=== PATIENT | female | born 1970 | race Caucasian/White ===

== ENCOUNTER 2016-08-26 18:46 | Emergency (ER) | payer SELFPAY ==
[~2016-08-26] VITALS: Ht 172.7 cm; Wt 65.0 kg
[~2016-08-26 18:46] MED LIST: IBUP800T23 PO
[2016-08-26 18:47] VITALS: BP 128/80; PULSE 93; RESP 14; TEMP 98; O2SAT 96
[2016-08-26] MEDS ORDERED: ONDANSETRON ODT 4 MG TAB PO ONE (19:15)
[2016-08-26] MEDS ORDERED: SILVER SULFADIAZINE 1% CR 50 GM JAR TOPICAL ONE (19:15)
[2016-08-26] MEDS ORDERED: ACETAMINOPHEN/HYDROcodone 325 MG/5 MG TAB PO ONE (19:15)
[2016-08-26] MEDS ORDERED: HYDR-3533 PO (19:17)
[2016-08-26] MEDS ORDERED: ZOFR4TAB PO (19:17)
[2016-08-26] MEDS ORDERED: SILV1CRE20 TOPICAL (19:17)
[2016-08-26] MEDS ORDERED: MONT10TA2 PO (19:19)
[2016-08-26] MEDS ORDERED: ADVA100A INH (19:19)
[2016-08-26] MEDS ORDERED: NEXI20CA PO (19:19)
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
== END 2016-08-26 19:52 | disposition home or self-care (01) ==
LOC: NEPK 18:46
DX: T23.202A Burn of second degree of left hand, unspecified site, initial encounter (principal); T31.0 Burns involving less than 10% of body surface; J44.9 Chronic obstructive pulmonary disease, unspecified; J45.909 Unspecified asthma, uncomplicated; Z79.899 Other long term (current) drug therapy; Z79.52 Long term (current) use of systemic steroids; X10.1XXA Contact with hot food, initial encounter
CPT/HCPCS: 16020

== ENCOUNTER 2016-09-30 08:43 | Emergency (ER) | payer SELFPAY ==
[~2016-09-30] VITALS: Ht 172.7 cm; Wt 66.0 kg
[~2016-09-30 08:43] MED LIST changes: +ADVA100A INH; +HYDR-3533 PO; +MONT10TA2 PO; +NEXI20CA PO; +SILV1CRE20 TOPICAL; +ZOFR4TAB PO
[2016-09-30 08:45] VITALS: BP 130/80; PULSE 86; RESP 20; TEMP 97.9; O2SAT 98
--- NOTE | 2016-09-30 09:21 | PD ---
HPI Chief Complaint: Complaint Time Seen by Provider: 09:06 Travel History International Travel<30 days: No Contact w/Intl Traveler<30days: No Traveled to known affect area: No History of Present Illness HPI 46yo F with PMH of COPD, cervical cancer currently cancer free for 4 years presents to the ED with multiple complaints. Pt has frequent UTIs and has been having dysuria for 1 week. Also with vaginal itching and white vaginal discharge for 1 week. Feels warm at home but no documented fever. Denies any nausea, vomiting, abdominal pain, chest pain, sob. Pt also complaining of right knee pain for 2.5 days after she was cleaning and twisted her right knee. States she heard a pop and it was swollen and painful. States she has been ambulating on it but with pain. Denies any focal weakness and numbness. PFSH Past Medical History Respiratory: Yes (copd asthma) Social History Alcohol Use: Yes Tobacco Use: No Substance Use: No Allergies-Medications (Allergen,Severity, Reaction): Coded Allergies: Azithromycin (Verified Allergy, Severe, Anaphylaxis, 09/30/16) rash, hives Tramadol (Verified Allergy, Severe, Anaphylaxis, 09/30/16) rash, hives Reported Meds & Prescriptions Reported Meds & Active Scripts Active Doxycycline Hyclate 100 Mg Cap 100 Mg PO BID Metronidazole 500 Mg Tab 500 Mg PO BID 7 Days Ibuprofen 800 Mg Tab 800 Mg PO Q8H PRN Ibuprofen 600 Mg Tab 600 Mg PO Q8H PRN Reported Nexium (Esomeprazole DR) 20 Mg Capdr 20 Mg PO DAILY Advair Diskus Inh (Fluticasone-Salmeterol Inh) 100-50 Mcg/Blist Aer 1 Puff INH BID Rinse mouth after use. Singulair (Montelukast Sodium) 10 Mg Tab 10 Mg PO HS Review of Systems Except as stated in HPI: all other systems reviewed are Neg Physical Exam Narrative GENERAL: 46yo F not in distress. SKIN: Focused skin assessment warm/dry. HEAD: Atraumatic. Normocephalic. EYES: Pupils equal and round. No scleral icterus. No injection or drainage. ENT: No nasal bleeding or discharge. Mucous membranes pink and moist. NECK: Trachea midline. No JVD. CARDIOVASCULAR: Regular rate and rhythm. No murmur appreciated. RESPIRATORY: No accessory muscle use. Coarse breath sounds. States this is her baseline. Speaking in complete sentences. GASTROINTESTINAL: Abdomen soft, suprapubic ttp. No rebound tenderness or guarding. PELVIC: +White discharge in vaginal vault. No blood. +CMT. No adnexal tenderness bilaterally. MUSCULOSKELETAL: Right knee: Not hot to touch. No erythema or ecchymoses. Mild edema and diffuse ttp. Sensation intact. Decreased ROM due to pain. DP 2 +. Sensation intact. NEUROLOGICAL: Awake and alert. No obvious cranial nerve deficits. Motor grossly within normal limits. Normal speech. PSYCHIATRIC: Appropriate mood and affect; insight and judgment normal. Data Data Last Documented VS Vital Signs Date Time Temp Pulse Resp B/P Pulse Ox O2 Delivery O2 Flow Rate FiO2 09/30/16 08:45 97.9 86 20 130/80 98 Room Air Orders Gc And Chlamydia Pcr (09/30/16 09:14) Wet Prep Profile (09/30/16 09:14) Ua Includes Microscopic (09/30/16 09:14) Ed Urine Pregnancytest Poc (09/30/16 09:14) Knee, Ltd (1 Or 2vws) (09/30/16 ) Azithromycin Powd Pack (Zithromax Powd P (09/30/16 09:30) Ceftriaxone Inj (Rocephin Inj) (09/30/16 09:30) Lidocaine 1% Inj (50 Ml) (Xylocaine 1% I (09/30/16 09:30) Ibuprofen (Motrin) (09/30/16 09:30) Doxycycline (Vibramycin) (09/30/16 10:00) Metronidazole (Flagyl) (09/30/16 10:30) Crutches (09/30/16 ) Splint Or Brace Apply/Monitor (09/30/16 11:04) Labs Laboratory Tests Test 09/30/16 09:27 Urine Color YELLOW Urine Turbidity HAZY Urine pH 5.5 Urine Specific [place] 1.029 Urine Protein 30 mg/dL Urine Glucose (UA) NEG mg/dL Urine Ketones NEG mg/dL Urine Occult Blood SMALL Urine Nitrite NEG Urine Bilirubin NEG Urine Urobilinogen 2.0 MG/DL Urine Leukocyte Esterase LARGE Urine RBC 6 /hpf Urine WBC 42 /hpf Urine WBC Clumps RARE Urine Squamous Epithelial 3 /hpf Cells Urine Bacteria OCC /hpf Urine Hyaline Casts 3 /lpf Urine Mucus MANY /lpf Clue Cells (Wet Prep) NONE SEEN Vaginal Trichomonas (Wet Prep) PRESENT Vaginal Yeast (Wet Prep) NONE SEEN MDM Medical Decision Making Medical Screen Exam Complete: Yes Emergency Medical Condition: Yes Differential Diagnosis Cystitis vs. vaginal candidiasis vs. bacterial vaginosis vs. trichomoniasis vs. PID Knee sprain vs. ligament injury vs. fracture Narrative Course 46yo F with c/o vaginal discharge, dysuria and pelvic pain for 1 week. Urine negative. Pt has large amount of white discharge on pelvic exam and CMT so empirically treated with ceftriaxone and azithromycin. However, when we were going to give the azithromycin, she suddenly remembers she had an anaphylactic reaction to z-samuel so azithromycin was not given. Pt was given doxycycline instead. UA showed large leukocyte. WBC 42. Wet prep positive for trichomonas. Pt given metronidazole. Pt also comes in with right knee pain after twisting it while cleaning Tuesday. She is nontoxic appearing, no documented fever, and knee does not appear warm or erythematous. Do not think pt has septic arthritis. Pt clearly states she twisted it and then had pain so likely ligamentous injury. Pt given ibuprofen for pain. Xray right knee normal. Knee placed in knee immobilizer and pt is requesting crutches. Will have pt follow up with orthopedic clinic and possible outpatient MRI if pain persists. Pt also refused arthrocentesis. Return precautions given. Diagnosis Primary Impression: Trichomoniasis Referrals: Jesse Rebollar MD as needed Twisted right knee, follow up if pain persists. Patient Instructions: General Instructions Departure Forms: Tests/Procedures Additional Instructions: Please follow up with your monitor and storage bin tender in 1 week. Return to the ED if symptoms worsen. Med/Other Pt SpecificInfo: Prescription(s) given Scripts Hydrocodone-Acetaminophen (Lortab)5-325 Mg Tab1 Tab PO Q6H PRN (PAIN) #7 TAB Ref 0 Prov:AurelianoMarilin DO 09/30/16 Ibuprofen 600 Mg [id number] Mg PO Q8H PRN (PAIN) #20 TAB Ref 0 Prov:AurelianoMarilin DO 09/30/16 Doxycycline Hyclate 100 Mg [id number] Mg PO BID #20 CAP Ref 0 Prov:AurelianoMarilin DO 09/30/16 Metronidazole 500 Mg [id number] Mg PO BID 7 Days Ref 0 Prov:AurelianoMarilin DO 09/30/16 Disposition: 01 DISCHARGE HOME Condition: Stable Marilin Bedoya DO Sep 30, 2016 09:21
[2016-09-30] MEDS ORDERED: IBUPROFEN 600 MG TAB PO ONE (09:30)
[2016-09-30] MEDS ORDERED: cefTRIAXone 250 MG VIAL IM ONE (09:30)
[2016-09-30] MEDS ORDERED: AZITHROMYCIN PWD FOR SUSP 1 GM PACKET PO ONE (09:30)
[2016-09-30] MEDS ORDERED: LIDOCAINE HCL 1% 50 ML VIAL IM ONE (09:30)
[2016-09-30] MEDS ORDERED: DOXYCYCLINE HYCLATE 100 MG CAP PO ONE (10:00)
[2016-09-30 10:14] LABS: BACTERIA, URINE OCC /hpf; BLOOD, URINE SMALL (NEG); GLUCOSE,URINE NEG (NEG); HYALINE CAST, URINE 3 /lpf (RARE); KETONE, URINE NEG (NEG); MUCUS URINE MANY /lpf (OCC); NITRITE,URINE NEG (NEG); PH, URINE 5.5 (5.0-8.5); SQUAMOUS EPITHELIAL CELL URINE 3 /hpf (0-5); URINE COLOR YELLOW (YELLW/STRAW)
[2016-09-30] MEDS ORDERED: metroNIDAZOLE 500 MG TAB PO ONE (10:30)
[2016-09-30] MEDS ORDERED: METR500T10 PO (10:36)
[2016-09-30] MEDS ORDERED: DOXY100C PO (10:36)
[2016-09-30] MEDS ORDERED: IBUP-232 PO (10:36)
--- NOTE | 2016-09-30 10:47 | RADRPT ---
EXAM DATE/TIME: 09/30/2016 10:08 [facility] COMPARISON: No previous studies available for comparison. INDICATIONS : Right knee pain and swelling for 2 days. Patient twisted her knee 2 days. MEDICAL HISTORY : None. SURGICAL HISTORY : None. ENCOUNTER: Initial ACUITY: 2 days PAIN SCORE: 9/10 LOCATION: Right medial knee. FINDINGS: Two view examination of the right knee demonstrates no evidence of fracture or dislocation. Bony min eralization is normal. The suprapatellar soft tissues have a normal configuration. CONCLUSION: Normal examination for a patient of this age. Bubba Mendez MD on September 30, 2016 at 10:44 Board Certified Radiologist. This report was verified electronically.
[2016-09-30] MEDS ORDERED: HYDR-3533 PO (11:31)
[2016-09-30 11:57] LABS: CHLAMYDIA PCR NOT DETECTED (NOT DETECT); NEISSERIA PCR NOT DETECTED (NOT DETECT)
== END 2016-09-30 11:42 | disposition home or self-care (01) ==
LOC: NEPD 08:43
DX: A59.9 Trichomoniasis, unspecified (principal); M25.561 Pain in right knee; J44.9 Chronic obstructive pulmonary disease, unspecified; J45.909 Unspecified asthma, uncomplicated; Z79.52 Long term (current) use of systemic steroids; Z79.1 Long term (current) use of non-steroidal anti-inflammatories (NSAID); Z79.899 Other long term (current) drug therapy
CPT/HCPCS: 73560; 81001; 84703; 87210; 87491; 87591; 96372; 99284; E0113; J0696; L1830

== ENCOUNTER 2016-11-19 12:54 | Emergency (ER) | payer SELFPAY ==
[~2016-11-19] VITALS: Ht 172.7 cm; Wt 68.0 kg
[~2016-11-19 12:54] MED LIST changes: +DOXY100C PO; +IBUP-232 PO; +METR500T10 PO; -SILV1CRE20 TOPICAL; -ZOFR4TAB PO
[2016-11-19 12:57] VITALS: BP 135/85; PULSE 91; RESP 12; TEMP 98.1; O2SAT 98
--- NOTE | 2016-11-19 13:17 | PD ---
Physical Exam Time Seen by Provider: 13:15 Narrative 46-year-old female presents with complaint of COPD exacerbation and abdominal pain. COPD exacerbation times a couple days. Abdominal pain for a little over a week. Reports shortness breath and wheezing. Denies chest pain. Reports vomiting and diarrhea. Denies fever. Patient seen in triage. VS reviewed. Awaiting bed placement. Data Data Last Documented VS Vital Signs Date Time Temp Pulse Resp B/P (MAP) Pulse Ox O2 Delivery O2 Flow Rate FiO2 11/19/16 12:57 98.1 91 12 135/85 (102) 98 MDM Supervised Visit with JOE: Stephanie Hunter Nov 19, 2016 13:17
[2016-11-19 14:56] VITALS: O2SAT 100
[2016-11-19] MEDS ORDERED: SODIUM CHLORIDE 0.9% FLUSH 10 ML FLUSH IVF PRN (15:00)
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
[2016-11-19] MEDS: RESP: ALBUTEROL 2.5 MG/IPRATROPIUM 0.5 MG NEB (SCH) INH (15:09)
[2016-11-19 15:39] LABS: AUTOMATED NEUTROPHIL # 5.7 TH/MM3 (1.8-7.7); BASOPHIL # 0.1 TH/MM3 (0-0.2); BASOPHIL % 0.6 % (0.0-2.0); EOSINOPHIL # 0.2 TH/MM3 (0-0.4); EOSINOPHIL % 1.8 % (0.0-4.0); HEMATOCRIT 34.6 % (35.0-46.0); HEMO FLAGS DIFF FINAL; LYMPH % 21.6 % (9.0-44.0); LYMPHOCYTE # 1.9 TH/MM3 (1.0-4.8); MEAN CELL VOLUME 95.2 FL (80.0-100.0); MEAN CORPUSCULAR HGB CONC 33.6 % (32.0-36.0); PLATELET COUNT 273 TH/MM3 (150-450); RED BLOOD COUNT 3.64 MIL/MM3 (4.00-5.30); RED CELL DISTRIBUTION WIDTH 13.7 % (11.6-17.2); WHITE BLOOD COUNT 8.7 TH/MM3 (4.0-11.0)
--- NOTE | 2016-11-19 15:39 | RADRPT ---
EXAM DATE/TIME: 11/19/2016 15:13 [facility] COMPARISON: KNEE RIGHT LTD (1 OR 2 VWS), September 30, 2016, 10:08. INDICATIONS : Wheezing MEDICAL HISTORY : Chronic obstructive pulmonary disease. asthma, [place] 3 x this year. SURGICAL HISTORY : None. ENCOUNTER: Initial ACUITY: 1 day PAIN SCORE: 0/10 LOCATION: Bilateral chest FINDINGS: A single view of the chest demonstrates the lungs to be symmetrically aerated without evidence of mas s, infiltrate or effusion. The cardiomediastinal contours are unremarkable. Osseous structures are intact. CONCLUSION: 1. No acute cardiopulmonary findings. Balbir Lenz MD on November 19, 2016 at 15:37 Board Certified Radiologist. This report was verified electronically.
[2016-11-19 15:43] LABS: BLOOD, URINE NEG (NEG); GLUCOSE,URINE NEG (NEG); KETONE, URINE NEG (NEG); NITRITE,URINE NEG (NEG); PH, URINE 6.5 (5.0-8.5); URINE COLOR YELLOW (YELLW/STRAW)
[2016-11-19 15:48] LABS: COMMENT (UR) CULT NOT INDICATED; CULTURE IF INDICATED CULT NOT INDICATED
[2016-11-19] MEDS ORDERED: IOHEXOL 350 MG/ML 10 ML VIAL (for RAD DIAG) IV PUSH ONE (16:11)
[2016-11-19 16:19] LABS: ALT (GPT) 25 U/L (10-53); ANION GAP 7 MEQ/L (5-15); AST (GOT) 24 U/L (15-37); BICARBONATE 25.8 MEQ/L (21.0-32.0); BLOOD UREA NITROGEN 7 MG/DL (7-18); CHLORIDE 108 MEQ/L (98-107); GLOMERULAR FILTRATION RATE 122 ML/MIN (>89); POTASSIUM 3.4 MEQ/L (3.5-5.1); SODIUM (NA) 141 MEQ/L (136-145)
[2016-11-19 16:20] LABS: ALKALINE PHOSPHATASE 63 U/L (45-117); TOTAL BILIRUBIN ADULT 0.2 MG/DL (0.2-1.0)
[2016-11-19] MEDS ORDERED: SPIRCAP INH (16:34)
[2016-11-19] MEDS ORDERED: ADVA100A INH (16:34)
[2016-11-19] MEDS ORDERED: VENTAER INH (16:34)
[2016-11-19] MEDS ORDERED: ZOFR4TAB PO (16:34)
[2016-11-19] MEDS ORDERED: MONT10TA2 PO (16:34)
[2016-11-19] MEDS ORDERED: PRED10PA2 PO (16:34)
--- NOTE | 2016-11-19 16:39 | RADRPT ---
EXAM DATE/TIME: 11/19/2016 16:15 [facility] COMPARISON: No previous studies available for comparison. INDICATIONS : Abdomen pain for one week. IV CONTRAST: 100 cc Omnipaque 350 (iohexol) IV ORAL CONTRAST: No oral contrast ingested. RADIATION DOSE: 12.45 CTDIvol (mGy) MEDICAL HISTORY : Carcinoma, not otherwise specified. SURGICAL HISTORY : Appendectomy. Left oopherectomy. ENCOUNTER: Initial ACUITY: 1 day PAIN SCALE: 6/10 LOCATION: Bilateral abdomen. TECHNIQUE: Volumetric scanning of the abdomen and pelvis was performed. Using automated exposure control and ad justment of the mA and/or kV according to patient size, radiation dose was kept as low as reasonably achievable to obtain optimal diagnostic quality images. DICOM format image data is available electro nically for review and comparison. FINDINGS: LOWER LUNGS: The visualized lower lungs are clear. LIVER: Homogeneous density without lesion. Generalized nonspecific hepatomegaly There is no dilation of the biliary tree. No calcified gallstones. Gallbladder is seen and luminal structure without evidence of wall thickening SPLEEN: Normal size without lesion. PANCREAS: Within normal limits. KIDNEYS: Normal in size and shape. There is no hydronephrosis. 3 mm stone is appreciated in the lower pole ca lyceal system nonobstructive the left kidney and there is a 1.7 cm cyst of the cortex posterior later ally mid pole of the right kidney as well as a tiny subcentimeter cyst medially. There is a 6 mm cyst of the lower pole of the left kidney and adjacent to this a linear hyperdense lesions most likely re present a complicated or hemorrhagic cyst although true solid mass cannot be excluded. ADRENAL GLANDS: Within normal limits. VASCULAR: There is no aortic aneurysm. BOWEL/MESENTERY: The stomach, small bowel, and colon demonstrate no acute abnormality. There is no free intraperitone al air or fluid. ABDOMINAL WALL: Within normal limits. RETROPERITONEUM: There is no lymphadenopathy. BLADDER: No wall thickening or mass. REPRODUCTIVE: Within normal limits. INGUINAL: There is no lymphadenopathy or hernia. MUSCULOSKELETAL: Within normal limits for patient age. Mild facet arthritic changes L5-S1 CONCLUSION: Nonspecific generalized hepatomegaly.. Bilateral renal cysts as described above. 3 mm left kidney lower pole calyceal nonobstructing stone. 9 mm rounded left kidney lower pole mass may represe nt a complicated or hemorrhagic cyst possibly 2 solid mass not excludable. This requires elective out patient evaluation. Ruiz Stone, MD on November 19, 2016 at 16:30 Board Certified Radiologist. This report was verified electronically.
[2016-11-19 17:08] VITALS: BP 125/67
--- NOTE | 2016-11-20 15:56 | EKG ---
Date Performed: 11/19/2016 Time Performed: 15:05:51 PTAGE: 46 years EKG: Sinus rhythm POSSIBLE RIGHT VENTRICULAR CONDUCTION DELAY BORDERLINE ECG NO PREVIOUS TRACING DOCTOR: Filiberto Reed Interpretating Date/Time 11/20/2016 15:55:24
== END 2016-11-19 17:10 | disposition home or self-care (01) ==
LOC: NEPD 12:54
DX: J44.1 Chronic obstructive pulmonary disease with (acute) exacerbation (principal); R10.84 Generalized abdominal pain; E87.6 Hypokalemia; R11.2 Nausea with vomiting, unspecified; J45.909 Unspecified asthma, uncomplicated
CPT/HCPCS: 71010; 74177; 80053; 81001; 83605; 84703; 85025; 93005; 94640; 94664; 99285; Q9967

== ENCOUNTER 2016-11-21 13:09 | Emergency (ER) | payer SELFPAY ==
[~2016-11-21] VITALS: Ht 172.7 cm; Wt 65.0 kg
[~2016-11-21 13:09] MED LIST changes: +PRED10PA2 PO; +SPIRCAP INH; +VENTAER INH; +ZOFR4TAB PO
[2016-11-21 13:19] VITALS: PULSE 75; RESP 21; TEMP 98.1; O2SAT 99
[2016-11-21 13:27] VITALS: BP 130/65; PULSE 77; RESP 20; O2SAT 98
[2016-11-21] MEDS ORDERED: SODIUM CHLOR 0.9% 1000 ML INJ 1,000 ML IV SCH (13:43)
[2016-11-21] MEDS ORDERED: RESP: ALBUTEROL 2.5 MG/IPRATROPIUM 0.5 MG NEB (SCH) INH ONE (13:45)
[2016-11-21] MEDS ORDERED: methylPREDNISolone SOD SUCC 125 MG/2 ML VIAL IV PUSH ONE (13:45)
[2016-11-21] MEDS ORDERED: MORPHINE SULFATE 4 MG/ML INJ IV PUSH ONE (13:45)
[2016-11-21] MEDS ORDERED: ONDANSETRON HCL 4 MG/2 ML VIAL IV PUSH ONE (13:45)
[2016-11-21 13:49] VITALS: O2SAT 98
[2016-11-21 13:59] LABS: AUTOMATED NEUTROPHIL # 5.1 TH/MM3 (1.8-7.7); BASOPHIL # 0.1 TH/MM3 (0-0.2); BASOPHIL % 0.8 % (0.0-2.0); EOSINOPHIL # 0.1 TH/MM3 (0-0.4); EOSINOPHIL % 1.4 % (0.0-4.0); HEMATOCRIT 36.2 % (35.0-46.0); HEMO FLAGS DIFF FINAL; LYMPH % 24.5 % (9.0-44.0); MEAN CORPUSCULAR HEMOGLOBIN 31.7 PG (27.0-34.0); MEAN CORPUSCULAR HGB CONC 33.4 % (32.0-36.0); MONO % 10.2 % (0.0-8.0); NEUT % 63.1 % (16.0-70.0); PLATELET COUNT 289 TH/MM3 (150-450); RED BLOOD COUNT 3.82 MIL/MM3 (4.00-5.30); RED CELL DISTRIBUTION WIDTH 14.2 % (11.6-17.2); WHITE BLOOD COUNT 8.1 TH/MM3 (4.0-11.0)
[2016-11-21 14:05] LABS: BACTERIA, URINE OCC /hpf; BLOOD, URINE TRACE (NEG); COMMENT (UR) CULT NOT INDICATED; CULTURE IF INDICATED CULT NOT INDICATED; GLUCOSE,URINE TRACE mg/dL (NEG); KETONE, URINE NEG (NEG); MUCUS URINE FEW /lpf (OCC); NITRITE,URINE NEG (NEG); PH, URINE 7.5 (5.0-8.5); URINE COLOR YELLOW (YELLW/STRAW)
[2016-11-21 14:25] LABS: ALT (GPT) 26 U/L (10-53); ANION GAP 7 MEQ/L (5-15); AST (GOT) 23 U/L (15-37); BICARBONATE 28.1 MEQ/L (21.0-32.0); BLOOD UREA NITROGEN 7 MG/DL (7-18); CHLORIDE 108 MEQ/L (98-107); GLOMERULAR FILTRATION RATE 88 ML/MIN (>89); POTASSIUM 3.6 MEQ/L (3.5-5.1); SODIUM (NA) 143 MEQ/L (136-145)
[2016-11-21 14:28] LABS: ALKALINE PHOSPHATASE 66 U/L (45-117); TOTAL BILIRUBIN ADULT 0.1 MG/DL (0.2-1.0)
--- NOTE | 2016-11-21 14:48 | RADRPT ---
EXAM DATE/TIME: 11/21/2016 14:27 [facility] COMPARISON: CT ABDOMEN & PELVIS W CONTRAST, November 19, 2016, 16:15. INDICATIONS : Flank pain. Left renal calculus seen on recent CT ORAL CONTRAST: No oral contrast ingested. RADIATION DOSE: 5.82 CTDIvol (mGy) MEDICAL HISTORY : Renal calculi. SURGICAL HISTORY : Appendectomy. oophorectomy ENCOUNTER: Initial ACUITY: 1 day PAIN SCALE: 6/10 LOCATION: Bilateral flank TECHNIQUE: Volumetric scanning of the abdomen and pelvis was performed. Using automated exposure control and ad justment of the mA and/or kV according to patient size, radiation dose was kept as low as reasonably achievable to obtain optimal diagnostic quality images. DICOM format image data is available electro nically for review and comparison. FINDINGS: LOWER LUNGS: The visualized lower lungs are clear. LIVER: Homogeneous density without lesion. There is no dilation of the biliary tree. No calcified gallston es. SPLEEN: Normal size without lesion. PANCREAS: Within normal limits. KIDNEYS: Normal in size and shape. There is no mass or the previously noted 3 mm left renal calculus is uncha nged. There is no hydronephrosis. The visualized portions of the bladder are unremarkable. ADRENAL GLANDS: Within normal limits. VASCULAR: There is no aortic aneurysm. BOWEL/MESENTERY: There are multiple diverticuli with no inflammatory change. The stomach, small bowel, and colon demon strate no acute abnormality. There is no free intraperitoneal air or fluid. ABDOMINAL WALL: Within normal limits. RETROPERITONEUM: There is no lymphadenopathy. BLADDER: No wall thickening or mass. REPRODUCTIVE: Within normal limits. INGUINAL: There is no lymphadenopathy or hernia. MUSCULOSKELETAL: Within normal limits for patient age. CONCLUSION: 1. No change in the 3 mm nonobstructing left renal calculus. There is no hydronephrosis. The right ki dney is unremarkable. 2. 9 mm hyperdense lesion extending off the lower pole the left kidney most consistent with a hyperde nse cyst. 3. Diverticulosis with no inflammatory change. Sergio John MD on November 21, 2016 at 14:40 Board Certified Radiologist. This report was verified electronically.
--- NOTE | 2016-11-21 14:50 | PD ---
HPI Chief Complaint: Flank/Kidney Pain Time Seen by Provider: 13:29 Travel History International Travel<30 days: No Contact w/Intl Traveler<30days: No Traveled to known affect area: No History of Present Illness HPI 46-year-old female that presents to the ED for evaluation of right flank pain and shortness of breath. Patient states that she was seen here on the for same. She was told that she had hypokalemia as well as COPD exacerbation. She was given prescriptions but she states that she's not been able to feel them up because she has no money and is waiting for her father to see if he can help her get them filled. She states that the pain to the right flank is 10 out of 10. Per patient she's been having a lot of discomfort. Per patient she feels dehydrated. Per patient she feels that she is weak. She states that she has allergy to azithromycin and tramadol. She states the shortness of breath for the most part has improved a little bit but not completely. She is also not been taking her inhalers because she cannot afford them. She states that the shortness of breath gets worse with exertion. States having some cough. Patient came here by ambulance for evaluation of this. No nausea or vomiting. No diarrhea. No urinary symptoms. She does tell me that she was diagnosed with a kidney stone which she was on the left kidney on her last admission as well as a cyst to her left kidney. No other medical problems reported today. Per patient his been ongoing for now 4 days. She has no PCP. PFSH Past Medical History Asthma: Yes Cancer: Yes (cervical ) COPD: Yes GERD: Yes Neurologic: Yes (neuropathy right arm ) Respiratory: Yes (copd asthma) ?: Not : 3 Para: 1 Miscarriage: 2 Past Surgical History Abdominal Surgery: Yes (small bowel obstruction, 7 laparscopic surgeries, appendectomy) Social History Alcohol Use: Yes (occ) Tobacco Use: Yes (occ) Substance Use: No (denies) Allergies-Medications (Allergen,Severity, Reaction): Coded Allergies: azithromycin (Unverified Allergy, Severe, Anaphylaxis, 10/12/16) rash, hives tramadol (Unverified Allergy, Severe, Anaphylaxis, 10/12/16) rash, hives Reported Meds & Prescriptions Reported Meds & Active Scripts Active Lortab (Hydrocodone-Acetaminophen) 5-325 Mg Tab 1 Tab PO Q6H PRN Cipro (Ciprofloxacin HCl) 500 Mg Tab 500 Mg PO BID 7 Days Zofran (Ondansetron HCl) 4 Mg Tab 4 Mg PO Q6HR PRN Spiriva Handihaler (Tiotropium Inh) 18 Mcg Cap 18 Mcg INH DAILY 1 capsule = 18 mcg Prednisone (48) 10 mg tab Dose Pack (Prednisone) 10 Mg Dspk 10 Mg PO DIRECTED Ventolin Hfa 18 GM Inh (Albuterol Sulfate) 90 Mcg/Act Aer 2 Puff INH Q4H PRN Advair Diskus Inh (Fluticasone-Salmeterol Inh) 100-50 Mcg/Blist Aer 1 Puff INH BID Rinse mouth after use. Singulair (Montelukast Sodium) 10 Mg Tab 10 Mg PO HS Lortab (Hydrocodone-Acetaminophen) 5-325 Mg Tab 1 Tab PO Q6H PRN Ibuprofen 600 Mg Tab 600 Mg PO Q8H PRN Doxycycline Hyclate 100 Mg Cap 100 Mg PO BID Metronidazole 500 Mg Tab 500 Mg PO BID 7 Days Ibuprofen 800 Mg Tab 800 Mg PO Q8H PRN Reported Nexium (Esomeprazole DR) 20 Mg Capdr 20 Mg PO DAILY Review of Systems Except as stated in HPI: all other systems reviewed are Neg Physical Exam Narrative GENERAL: SKIN: Warm and dry. HEAD: Atraumatic. Normocephalic. EYES: Pupils equal and round. No scleral icterus. No injection or drainage. ENT: No nasal bleeding or discharge. Mucous membranes pink and moist. Tongue is midline. No uvula deviation. NECK: Trachea midline. No JVD. CARDIOVASCULAR: Regular rate and rhythm. No murmurs, S3, S4. RESPIRATORY: No accessory muscle use. Mild wheezing on expiration. Breath sounds equal bilaterally. GASTROINTESTINAL: Abdomen soft, non-tender, nondistended. Hepatic and splenic margins not palpable. MUSCULOSKELETAL: Extremities without clubbing, cyanosis, or edema. No obvious deformities. Full range of motion of the upper and lower extremity is bilaterally. Patient does have some mild bruising on the right flank. Appears to be from contusion. Patient does have some CVA tenderness noted on the right side. NEUROLOGICAL: Awake and alert. No obvious cranial nerve deficits. Motor grossly within normal limits. Five out of 5 muscle strength in the arms and legs. Normal speech. PSYCHIATRIC: Appropriate mood and affect; insight and judgment normal. Data Data Last Documented VS Vital Signs Date Time Temp Pulse Resp B/P (MAP) Pulse Ox O2 Delivery O2 Flow Rate FiO2 11/21/16 13:49 98 Room Air 11/21/16 13:27 77 20 11/21/16 13:19 98.1 Orders Orders Complete Blood Count With Diff (11/21/16 13:34) Comprehensive Metabolic Panel (11/21/16 13:34) Lipase (11/21/16 13:34) Urinalysis - C+S If Indicated (11/21/16 13:34) Ct Abd/Pel W/O Iv Contrast (11/21/16 13:34) Iv Access Insert/Monitor (11/21/16 13:34) Ecg Monitoring (11/21/16 13:34) Oximetry (11/21/16 13:34) Methylprednisolone So Succ Inj (Solumedr (11/21/16 13:45) Albuterol-Ipratropium Neb (Duoneb Neb) (11/21/16 13:45) Morphine Inj (Morphine Inj) (11/21/16 13:45) Ondansetron Inj (Zofran Inj) (11/21/16 13:45) Sodium Chlor 0.9% 1000 Ml Inj (Ns 1000 M (11/21/16 13:43) Ed Urine Pregnancytest Poc (11/21/16 13:43) Labs Laboratory Tests Test 11/21/16 13:30 11/21/16 13:35 Urine Color YELLOW Urine Turbidity CLOUDY Urine pH 7.5 Urine Specific [place] 1.021 Urine Protein TRACE mg/dL Urine Glucose (UA) TRACE mg/dL Urine Ketones NEG mg/dL Urine Occult Blood TRACE Urine Nitrite NEG Urine Bilirubin NEG Urine Urobilinogen LESS THAN 2.0 MG/DL Urine Leukocyte Esterase NEG Urine RBC 2 /hpf Urine Amorphous Sediment FEW Urine Bacteria OCC /hpf Urine Mucus FEW /lpf Microscopic Urinalysis Comment CULT NOT INDICATED White Blood Count 8.1 TH/MM3 Red Blood Count 3.82 MIL/MM3 Hemoglobin 12.1 GM/DL Hematocrit 36.2 % Mean Corpuscular Volume 95.0 FL Mean Corpuscular Hemoglobin 31.7 PG Mean Corpuscular Hemoglobin Concent 33.4 % Red Cell Distribution Width 14.2 % Platelet Count 289 TH/MM3 Mean Platelet Volume 7.3 FL Neutrophils (%) (Auto) 63.1 % Lymphocytes (%) (Auto) 24.5 % Monocytes (%) (Auto) 10.2 % Eosinophils (%) (Auto) 1.4 % Basophils (%) (Auto) 0.8 % Neutrophils # (Auto) 5.1 TH/MM3 Lymphocytes # (Auto) 2.0 TH/MM3 Monocytes # (Auto) 0.8 TH/MM3 Eosinophils # (Auto) 0.1 TH/MM3 Basophils # (Auto) 0.1 TH/MM3 CBC Comment DIFF FINAL Differential Comment Blood Urea Nitrogen 7 MG/DL Creatinine 0.72 MG/DL Random Glucose 120 MG/DL Total Protein 7.0 GM/DL Albumin 3.2 GM/DL Calcium Level 8.6 MG/DL Alkaline Phosphatase 66 U/L Aspartate Amino Transf (AST/SGOT) 23 U/L Alanine Aminotransferase (ALT/SGPT) 26 U/L Total Bilirubin 0.1 MG/DL Sodium Level 143 MEQ/L Potassium Level 3.6 MEQ/L Chloride Level 108 MEQ/L Carbon Dioxide Level 28.1 MEQ/L Anion Gap 7 MEQ/L Estimat Glomerular Filtration Rate 88 ML/MIN Lipase 143 U/L MDM Medical Decision Making Medical Screen Exam Complete: Yes Emergency Medical Condition: Yes Medical Record Reviewed: Yes Interpretation(s) CBC & BMP Diagram 11/21/16 13:35 Total Protein 7.0, Albumin 3.2 L, Calcium Level 8.6, Alkaline Phosphatase 66, Aspartate Amino Transf (AST/SGOT) 23, Alanine Aminotransferase (ALT/SGPT) 26, Total Bilirubin 0.1 L UA shows some blood and bacteria otherwise unremarcable. Last Impressions Abdomen/Pelvis CT 11/21/16 1334 Signed Impressions: Service Date/Time: Monday, November 21, 2016 14:27 - CONCLUSION: 1. No change in the 3 mm nonobstructing left renal calculus. There is no hydronephrosis. The right kidney is unremarkable. 2. 9 mm hyperdense lesion extending off the lower pole the left kidney most consistent with a hyperdense cyst. 3. Diverticulosis with no inflammatory change. Sergio John MD Differential Diagnosis COPD exacerbation versus chronic COPD versus noncompliance versus flank pain versus chronic flank pain versus kidney stone versus pylonephritis versus UTI Narrative Course 46-year-old female that presents to the ED for evaluation of shortness of breath as well as abdominal pain. Patient was properly examined and was found to have signs and symptoms which appear to be consistent with chronic COPD and noncompliance for medications excitement able to afford them as well as flank pain. Patient was diagnosed with some kidney stones of her kidneys last time. The review the records and she did have some kidney stones. I recommend CT to rule out any sign of hydronephrosis or infection or a kidney passing. Patient agrees with this. Labs were done. Labs for the most partial some blood in the urine and some bacteria. No leukocytosis. CT was negative for acute hydronephrosis or kidney stone. At this time this appears to be more musculoskeletal. Possibly from the coughing. She was given pain medications and IV fluids as well as breathing treatment and Solu-Medrol here with relief of her symptoms. Patient was reassured. At this time patient will be treated for her pain with pain medication as was given Cipro to cover for Infection which is only thing I do not see was prescribed to her in her last visit. She was given inhalers as well as prescription for prednisone. She was told to continue taking this." Follow with PCP. See ED worsening symptoms. Diagnosis Primary Impression: COPD (chronic obstructive pulmonary disease) Qualified Codes: J41.0 - Simple chronic bronchitis Additional Impression: Flank pain, acute Patient Instructions: General Instructions, Narcotic given in the ED Additional Instructions: Do not drink or drive while taking pain meds. Follow up with PCP. Take meds prescribed to you on your prior evaluation. Take new meds as precribed. See ED if worst. Med/Other Pt SpecificInfo: Prescription(s) given Scripts Hydrocodone-Acetaminophen (Lortab) 5-325 Mg Tab 1 TAB PO Q6H Y for PAIN, #10 TAB 0 Refills Prov: Timothy Sheikh MD 11/21/16 Ciprofloxacin (Cipro) 500 Mg Tab 500 MG PO BID for Infection for 7 Days, #14 TAB 0 Refills Prov: Timothy Sheikh MD 11/21/16 Disposition: 01 DISCHARGE HOME Condition: Dimas Lopez Nov 21, 2016 14:49
[2016-11-21] MEDS ORDERED: HYDR-3533 PO (14:54)
[2016-11-21] MEDS ORDERED: CIPR-9 PO (14:54)
== END 2016-11-21 15:53 | disposition home or self-care (01) ==
LOC: NEPE 13:09
DX: J41.0 Simple chronic bronchitis (principal); R10.31 Right lower quadrant pain; K21.9 Gastro-esophageal reflux disease without esophagitis; Z87.442 Personal history of urinary calculi; Z72.0 Tobacco use
CPT/HCPCS: 74176; 80053; 81001; 83690; 84703; 85025; 94664; 96374; 96375; 99285; J2270; J2405; J2930; J7030

== ENCOUNTER 2016-12-23 12:44 | Emergency (ER) | payer SELFPAY ==
[~2016-12-23] VITALS: Ht 172.7 cm; Wt 70.0 kg
[~2016-12-23 12:44] MED LIST changes: +CIPR-9 PO
[2016-12-23 12:49] VITALS: BP 113/63; PULSE 68; RESP 12; TEMP 98.6; O2SAT 99
--- NOTE | 2016-12-23 13:34 | PD ---
HPI Chief Complaint: Hip Injury Time Seen by Provider: 13:22 Travel History International Travel<30 days: No Contact w/Intl Traveler<30days: No Traveled to known affect area: No History of Present Illness HPI The patient was seen and examined in the presence of the nurse. This patient complains of right hip pain. 3 days ago she fell while standing on the tailgate of a vehicle and landed on her right hip. She struck the trailer hitch. She has pain of moderate severity. It is worse with ambulation or movement. Alleviated with rest. Duration 3 days. PFSH Past Medical History Asthma: Yes Cancer: Yes (cervical ) COPD: Yes GERD: Yes Neurologic: Yes (neuropathy right arm ) Respiratory: Yes ?: Not : 3 Para: 1 Miscarriage: 2 Past Surgical History Abdominal Surgery: Yes (small bowel obstruction, 7 laparscopic surgeries, appendectomy) Genitourinary Surgery: Yes (left oophorectomy ) Hysterectomy: Yes Social History Alcohol Use: Yes (occ) Tobacco Use: Yes (occ) Substance Use: No (denies) Allergies-Medications (Allergen,Severity, Reaction): Coded Allergies: azithromycin (Unverified Allergy, Severe, Anaphylaxis, 12/23/16) rash, hives tramadol (Unverified Allergy, Severe, Anaphylaxis, 12/23/16) rash, hives Reported Meds & Prescriptions Reported Meds & Active Scripts Active Ventolin Hfa 18 GM Inh (Albuterol Sulfate) 90 Mcg/Act Aer 2 Puff INH Q4H PRN Advair Diskus Inh (Fluticasone-Salmeterol Inh) 100-50 Mcg/Blist Aer 1 Puff INH BID Rinse mouth after use. Singulair (Montelukast Sodium) 10 Mg Tab 10 Mg PO HS Ibuprofen 600 Mg Tab 600 Mg PO Q8H PRN Reported Nexium (Esomeprazole DR) 20 Mg Capdr 20 Mg PO DAILY Review of Systems General / Constitutional: No: Fever Eyes: No: Visual changes HENT: No: Headaches Cardiovascular: No: Chest Pain or Discomfort Respiratory: No: Shortness of Breath Gastrointestinal: No: Abdominal Pain Genitourinary: No: Dysuria Musculoskeletal: Positive: Arthralgias, Limited ROM, Pain Skin: No Rash Neurologic: No: Weakness Psychiatric: No: Depression Endocrine: No: Polydipsia Hematologic/Lymphatic: No: Easy Bruising Physical Exam Narrative GENERAL: Well-nourished, well-developed patient with right hip pain SKIN: Focused skin assessment reveals no rash and nodules. Skin is Warm and dry. HEAD: Atraumatic. Normocephalic. EYES: Pupils equal and round. No scleral icterus. No injection or drainage. ENT: No nasal bleeding or discharge. Mucous membranes pink and moist. NECK: Trachea midline. No JVD. CARDIOVASCULAR: Regular rate and rhythm. No murmur appreciated. RESPIRATORY: No accessory muscle use. Clear to auscultation. Breath sounds equal bilaterally. GASTROINTESTINAL: Abdomen soft, non-tender, nondistended. Hepatic and splenic margins not palpable. MUSCULOSKELETAL: No obvious deformities. No clubbing. No cyanosis. No edema. Has tenderness at the right hip and right buttock with no bruising or swelling or deformity. No spine tenderness. NEUROLOGICAL: Awake and alert. No obvious cranial nerve deficits. Motor grossly within normal limits. Normal speech. PSYCHIATRIC: Appropriate mood and affect; insight and judgment normal. Data Data Last Documented VS Vital Signs Date Time Temp Pulse Resp B/P (MAP) Pulse Ox O2 Delivery O2 Flow Rate FiO2 12/23/16 12:49 98.6 68 12 113/63 (80) 99 Orders Orders Pelvis, Ap Only (Routine) (12/23/16 ) Femur (Ap & Lat/2vws) (12/23/16 ) Oxycodone-Acetamin 5-325 Mg (Percocet (12/23/16 15:30) MDM Medical Decision Making Medical Screen Exam Complete: Yes Emergency Medical Condition: Yes Medical Record Reviewed: Yes Differential Diagnosis Hip Fracture, dislocation, pelvic fracture, contusion Narrative Course I have reviewed the patient's electronic medical record. I Reviewed her pelvis x-ray which is normal I reviewed her right femur x-rays which are normal Nothing objective here with exam or x-ray imaging I gave HER-2 pain pills She inquires the following up with orthopedist would be recommended. She plans on doing that Diagnosis Primary Impression: Contusion of right hip, initial encounter Additional Instructions: The patient was advised to follow up with their physician and return if they worsen. Med/Other Pt SpecificInfo: Other Disposition: 01 DISCHARGE HOME Condition: Stable Logan Wolf MD Dec 23, 2016 13:34
--- NOTE | 2016-12-23 14:32 | RADRPT ---
EXAM DATE/TIME: 12/23/2016 14:07 [facility] COMPARISON: No previous studies available for comparison. INDICATIONS : Right hip pain, fall. MEDICAL HISTORY : None. SURGICAL HISTORY : None. ENCOUNTER: Initial ACUITY: 2 days PAIN SCORE: 10/10 LOCATION: Right hip FINDINGS: A single frontal view of the pelvis demonstrates no evidence of fracture. The bony pelvic ring is in tact. Bony mineralization is normal. The soft tissues are intact. CONCLUSION: Negative exam. Segundo Hawk MD on December 23, 2016 at 14:30 Board Certified Radiologist. This report was verified electronically.
--- NOTE | 2016-12-23 14:33 | RADRPT ---
EXAM DATE/TIME: 12/23/2016 14:07 [facility] COMPARISON: No previous studies available for comparison. INDICATIONS : Right leg pain, fall. MEDICAL HISTORY : None. SURGICAL HISTORY : None. ENCOUNTER: Initial ACUITY: 2 days PAIN SCORE: 10/10 LOCATION: Right proximal femur FINDINGS: Two view examination of the right femur demonstrates no evidence of fracture or dislocation. Bony mi neralization is normal. The soft tissue structures are intact. CONCLUSION: Negative exam. Segundo Hawk MD on December 23, 2016 at 14:31 Board Certified Radiologist. This report was verified electronically.
[2016-12-23] MEDS ORDERED: oxyCODONE/ACETAMINOPHEN 5 MG/325 MG TAB PO ONE ×2 (15:30)
== END 2016-12-23 16:21 | disposition home or self-care (01) ==
LOC: NEPD 12:44
DX: S70.01XA Contusion of right hip, initial encounter (principal); W17.89XA Other fall from one level to another, initial encounter
CPT/HCPCS: 72170; 73552; 99284

== ENCOUNTER 2017-03-15 02:03 | Emergency (ER) | payer SELFPAY ==
[~2017-03-15] VITALS: Ht 172.7 cm; Wt 65.0 kg
[~2017-03-15 02:03] MED LIST changes: -CIPR-9 PO; -DOXY100C PO; -HYDR-3533 PO; -IBUP800T23 PO; -METR500T10 PO; -PRED10PA2 PO; -SPIRCAP INH; -ZOFR4TAB PO
[2017-03-15 02:07] VITALS: BP 157/93; PULSE 77; RESP 28; TEMP 98.1; O2SAT 98
[2017-03-15] MEDS ORDERED: RESP: ALBUTEROL 2.5 MG/IPRATROPIUM 0.5 MG NEB (SCH) NEB ONE (02:15)
[2017-03-15 02:50] LABS: BILIRUBIN, URINE NEG (NEG); BLOOD, URINE NEG (NEG); GLUCOSE,URINE NEG (NEG); KETONE, URINE NEG (NEG); MUCUS URINE FEW /lpf (OCC); NITRITE,URINE NEG (NEG); PH, URINE 6.5 (5.0-8.5); SQUAMOUS EPITHELIAL CELL URINE 4 /hpf (0-5); URINE COLOR LIGHT-YELLOW (YELLW/STRAW); URINE LEUKOCYTE ESTERASE SMALL (NEG)
--- NOTE | 2017-03-15 02:53 | RADRPT ---
EXAM DATE/TIME: 03/15/2017 02:30 [facility] COMPARISON: CHEST SINGLE AP, November 19, 2016, 15:13. INDICATIONS : Cough and short of breath. MEDICAL HISTORY : None. SURGICAL HISTORY : None. ENCOUNTER: Initial ACUITY: 1 day PAIN SCORE: 0/10 LOCATION: Bilateral chest FINDINGS: A single view of the chest demonstrates the lungs to be symmetrically aerated without evidence of mas s, infiltrate or effusion. The cardiomediastinal contours are unremarkable. Osseous structures are intact. CONCLUSION: No acute disease. Ton Campos MD on March 15, 2017 at 2:50 Board Certified Radiologist. This report was verified electronically.
--- NOTE | 2017-03-15 03:06 | PD ---
HPI . Respiratory symptoms Chief Complaint: Respiratory Symptoms Time Seen by Provider: 02:07 Travel History International Travel<30 days: No Contact w/Intl Traveler<30days: No Traveled to known affect area: No History of Present Illness HPI 46-year-old female complains of having a cough for over a week, notes worsening of symptoms tonight with acute wheezing and shortness of breath. Patient denies any fever chills sweats, denies production of cough, night sweats, hemoptysis. The patient also denies having leg edema or pain, recent sedentary period or confining travel. PFSH Past Medical History Narrative Medical Past medical history reviewed Asthma: Yes Cancer: Yes (cervical ) COPD: Yes GERD: Yes Neurologic: Yes (neuropathy right arm ) Respiratory: Yes (copd, asthma ) Influenza Vaccination: Yes ?: Not LMP: 04/20/2012 : 3 Para: 1 Miscarriage: 2 Past Surgical History Abdominal Surgery: Yes (small bowel obstruction, 7 laparscopic surgeries, appendectomy) Genitourinary Surgery: Yes (left oophorectomy ) Hysterectomy: Yes Social History Alcohol Use: Yes (occ) Tobacco Use: Yes (occ) Substance Use: No (denies) Allergies-Medications (Allergen,Severity, Reaction): Coded Allergies: azithromycin (Unverified Allergy, Severe, Anaphylaxis, 03/15/17) rash, hives tramadol (Unverified Allergy, Severe, Anaphylaxis, 03/15/17) rash, hives codeine (Verified Allergy, Unknown, 03/15/17) Reported Meds & Prescriptions Reported Meds & Active Scripts Active Ventolin Hfa 18 GM Inh (Albuterol Sulfate) 90 Mcg/Act Aer 2 Puff INH Q4H PRN Advair Diskus Inh (Fluticasone-Salmeterol Inh) 100-50 Mcg/Blist Aer 1 Puff INH BID Rinse mouth after use. Singulair (Montelukast Sodium) 10 Mg Tab 10 Mg PO HS Ibuprofen 600 Mg Tab 600 Mg PO Q8H PRN Reported Nexium (Esomeprazole DR) 20 Mg Capdr 20 Mg PO DAILY Narrative Medication Allergies and medications reviewed Review of Systems Except as stated in HPI: all other systems reviewed are Neg General / Constitutional: No: Fever Eyes: No: Visual changes HENT: No: Headaches Cardiovascular: No: Chest Pain or Discomfort Respiratory: Positive: Cough, Shortness of Breath, Wheezing, No: Sneezing, Orthopnea, Hemoptysis, Stridor, Night Sweats, Pleuritic Pain Gastrointestinal: No: Abdominal Pain Genitourinary: No: Dysuria Musculoskeletal: No: Pain Skin: No Rash Neurologic: No: Weakness Psychiatric: No: Depression Endocrine: No: Polydipsia Hematologic/Lymphatic: No: Easy Bruising Physical Exam Narrative GENERAL: Awake alert oriented 3 mild respiratory distress SKIN: Warm and dry. Color is normal no diaphoresis cyanosis or pallor HEAD: Atraumatic. Normocephalic. EYES: Pupils equal and round. No scleral icterus. No injection or drainage. ENT: No nasal bleeding or discharge. Mucous membranes pink and moist. Uvula midline no oral lesions NECK: Trachea midline. No JVD. Supple full range of motion no stridor CARDIOVASCULAR: Regular rate and rhythm. S1-S2 no murmurs rubs or gallops RESPIRATORY: No accessory muscle use. Clear to auscultation. Breath sounds equal bilaterally. GASTROINTESTINAL: Abdomen soft, non-tender, nondistended. Hepatic and splenic margins not palpable. MUSCULOSKELETAL: Extremities without clubbing, cyanosis, or edema. No obvious deformities. NEUROLOGICAL: Awake and alert. No obvious cranial nerve deficits. Motor grossly within normal limits. Five out of 5 muscle strength in the arms and legs. Normal speech. PSYCHIATRIC: Appropriate mood and affect; insight and judgment normal. Data Data Last Documented VS Vital Signs Date Time Temp Pulse Resp B/P (MAP) Pulse Ox O2 Delivery O2 Flow Rate FiO2 03/15/17 02:07 98.1 77 28 157/93 (114) 98 Orders Orders Influenzae A/B Antigen (03/15/17 02:10) Chest, Single Ap (03/15/17 ) Albuterol-Ipratropium Neb (Duoneb Neb) (03/15/17 02:15) Urinalysis - C+S If Indicated (03/15/17 02:23) Ed Urine Pregnancytest Poc (03/15/17 02:23) Labs Laboratory Tests Test 03/15/17 02:30 Urine Color LIGHT-YELLOW Urine Turbidity CLEAR Urine pH 6.5 Urine Specific [place] 1.008 Urine Protein NEG mg/dL Urine Glucose (UA) NEG mg/dL Urine Ketones NEG mg/dL Urine Occult Blood NEG Urine Nitrite NEG Urine Bilirubin NEG Urine Urobilinogen LESS THAN 2.0 MG/DL Urine Leukocyte Esterase SMALL Urine RBC 1 /hpf Urine WBC 1 /hpf Urine Squamous Epithelial Cells 4 /hpf Urine Mucus FEW /lpf Microscopic Urinalysis Comment CULT NOT INDICATED MDM Medical Decision Making Medical Screen Exam Complete: Yes Emergency Medical Condition: Yes Medical Record Reviewed: Yes Differential Diagnosis Acute bronchitis, pneumonia Narrative Course Patient markedly improved with albuterol Atrovent nebulizer treatments. Steroids administered by EMS crew will continue his outpatient. Diagnosis Primary Impression: Acute bronchitis Qualified Codes: J20.9 - Acute bronchitis, unspecified Patient Instructions: Acute Bronchitis (ED), General Instructions Additional Instructions: Albuterol inhaler 2 puffs every 4-6 hours as needed for cough and wheezing. Medrol Dosepak tapering steroids as prescribed. Follow-up with your doctor. Return for worsening Scripts Methylprednisolone Dosepak (Medrol Dosepak) 4 Mg Dspk 4 MG PO DIRECTED, #1 DSPK 0 Refills Per Pharmacist direction Prov: Aram Simpson MD 03/15/17 Albuterol 18 GM Inh (Ventolin Hfa 18 GM Inh) 90 Mcg/Act Aer 2 PUFF INH Q4-6H Y for SHORTNESS OF BREATH, #1 INHALER 0 Refills Prov: Aram Simpson MD 03/15/17 Disposition: 01 DISCHARGE HOME Condition: Stable Aram Simpson MD Mar 15, 2017 03:06
[2017-03-15] MEDS ORDERED: MEDR4PAK PO (03:09)
[2017-03-15] MEDS ORDERED: VENTAER INH (03:09)
--- NOTE | 2017-03-15 14:43 | EKG ---
Date Performed: 03/15/2017 Time Performed: 02:12:05 PTAGE: 46 years EKG: Sinus rhythm NORMAL ECG Since PREVIOUS TRACING , no significant change noted PREVIOUS TRACIN11/19/2016 15.05 DOCTOR: Mohini Bourgeois Interpretating Date/Time 03/15/2017 14:41:43
== END 2017-03-15 03:10 | disposition home or self-care (01) ==
LOC: NEPE 02:03
DX: J20.9 Acute bronchitis, unspecified (principal); J45.909 Unspecified asthma, uncomplicated; K21.9 Gastro-esophageal reflux disease without esophagitis; Z72.0 Tobacco use; Z79.899 Other long term (current) drug therapy
CPT/HCPCS: 71045; 81001; 84703; 87804; 93005; 94664; 99284

== ENCOUNTER 2017-04-12 17:50 | Emergency (ER) | payer SELFPAY ==
[~2017-04-12] VITALS: Ht 172.7 cm; Wt 59.0 kg
[~2017-04-12 17:50] MED LIST changes: +MEDR4PAK PO
[2017-04-12 17:51] VITALS: BP 152/84; PULSE 82; RESP 16; TEMP 98.7; O2SAT 98
[2017-04-12 18:45] LABS: AUTOMATED NEUTROPHIL # 5.5 TH/MM3 (1.8-7.7); BASOPHIL # 0.1 TH/MM3 (0-0.2); BASOPHIL % 0.7 % (0.0-2.0); EOSINOPHIL # 0.2 TH/MM3 (0-0.4); EOSINOPHIL % 2.1 % (0.0-4.0); HEMATOCRIT 39.1 % (35.0-46.0); HEMOGLOBIN 13.6 GM/DL (11.6-15.3); LYMPHOCYTE # 2.7 TH/MM3 (1.0-4.8); MEAN CELL VOLUME 94.4 FL (80.0-100.0); MEAN CORPUSCULAR HEMOGLOBIN 32.7 PG (27.0-34.0); MEAN CORPUSCULAR HGB CONC 34.7 % (32.0-36.0); MONO % 8.2 % (0.0-8.0); MONOCYTE # 0.7 TH/MM3 (0-0.9); PLATELET COUNT 357 TH/MM3 (150-450); RED BLOOD COUNT 4.15 MIL/MM3 (4.00-5.30); RED CELL DISTRIBUTION WIDTH 13.7 % (11.6-17.2); WHITE BLOOD COUNT 9.2 TH/MM3 (4.0-11.0)
[2017-04-12 18:51] LABS: BILIRUBIN, URINE NEG (NEG); BLOOD, URINE NEG (NEG); GLUCOSE,URINE NEG (NEG); KETONE, URINE NEG (NEG); MUCUS URINE FEW /lpf (OCC); NITRITE,URINE NEG (NEG); PH, URINE 5.5 (5.0-8.5); SQUAMOUS EPITHELIAL CELL URINE <1 /hpf (0-5); URINE COLOR LIGHT-YELLOW (YELLW/STRAW); URINE LEUKOCYTE ESTERASE NEG (NEG)
[2017-04-12 19:08] LABS: BICARBONATE 27.9 MEQ/L (21.0-32.0); CALCIUM 8.9 MG/DL (8.5-10.1); CREATININE 0.75 MG/DL (0.50-1.00)
--- NOTE | 2017-04-12 19:42 | PD ---
HPI Chief Complaint: Flank/Kidney Pain Time Seen by Provider: 18:02 Travel History International Travel<30 days: No Contact w/Intl Traveler<30days: No Traveled to known affect area: No History of Present Illness HPI 46-year-old female presents to the emergency department for evaluation left flank pain. This began last evening. It is sharp and constant. She reports associated fever and chills. She has had urinary urgency and frequency. Denies any vaginal discharge or bleeding. Denies any chance of . No other symptoms to report. PFSH Past Medical History Asthma: Yes Cancer: Yes (cervical ) COPD: Yes GERD: Yes Neurologic: Yes (neuropathy right arm ) Respiratory: Yes (copd, asthma ) : 3 Para: 1 Miscarriage: 2 Past Surgical History Abdominal Surgery: Yes (small bowel obstruction, 7 laparscopic surgeries, appendectomy) Genitourinary Surgery: Yes (left oophorectomy ) Hysterectomy: Yes Social History Alcohol Use: Yes (occ) Tobacco Use: Yes (occ) Substance Use: No (denies) Allergies-Medications (Allergen,Severity, Reaction): Coded Allergies: azithromycin (Unverified Allergy, Severe, Anaphylaxis, 03/15/17) rash, hives tramadol (Unverified Allergy, Severe, Anaphylaxis, 03/15/17) rash, hives codeine (Verified Allergy, Unknown, 03/15/17) Reported Meds & Prescriptions Reported Meds & Active Scripts Active Medrol Dosepak (Methylprednisolone) 4 Mg Dspk 4 Mg PO DIRECTED Per Pharmacist direction Ventolin Hfa 18 GM Inh (Albuterol Sulfate) 90 Mcg/Act Aer 2 Puff INH Q4-6H PRN Ventolin Hfa 18 GM Inh (Albuterol Sulfate) 90 Mcg/Act Aer 2 Puff INH Q4H PRN Advair Diskus Inh (Fluticasone-Salmeterol Inh) 100-50 Mcg/Blist Aer 1 Puff INH BID Rinse mouth after use. Singulair (Montelukast Sodium) 10 Mg Tab 10 Mg PO HS Ibuprofen 600 Mg Tab 600 Mg PO Q8H PRN Reported Nexium (Esomeprazole DR) 20 Mg Capdr 20 Mg PO DAILY Review of Systems Except as stated in HPI: all other systems reviewed are Neg Physical Exam Narrative This is a well-nourished female patient, ambulatory. She appears nontoxic. She is holding her left flank area. Her respirations are even. Her heart rate is within normal limits. She has no obvious deformities. She is moving all extremities. Data Data Last Documented VS Vital Signs Date Time Temp Pulse Resp B/P (MAP) Pulse Ox O2 Delivery O2 Flow Rate FiO2 04/12/17 19:54 04/12/17 17:51 98.7 82 16 98 Room Air Orders Orders Complete Blood Count With Diff (04/12/17 18:08) Basic Metabolic Panel (Bmp) (04/12/17 18:08) Urinalysis - C+S If Indicated (04/12/17 18:08) Ed Urine Pregnancytest Poc (04/12/17 18:08) Labs Laboratory Tests Test 04/12/17 18:21 White Blood Count 9.2 TH/MM3 Red Blood Count 4.15 MIL/MM3 Hemoglobin 13.6 GM/DL Hematocrit 39.1 % Mean Corpuscular Volume 94.4 FL Mean Corpuscular Hemoglobin 32.7 PG Mean Corpuscular Hemoglobin Concent 34.7 % Red Cell Distribution Width 13.7 % Platelet Count 357 TH/MM3 Mean Platelet Volume 7.0 FL Neutrophils (%) (Auto) 60.0 % Lymphocytes (%) (Auto) 29.0 % Monocytes (%) (Auto) 8.2 % Eosinophils (%) (Auto) 2.1 % Basophils (%) (Auto) 0.7 % Neutrophils # (Auto) 5.5 TH/MM3 Lymphocytes # (Auto) 2.7 TH/MM3 Monocytes # (Auto) 0.7 TH/MM3 Eosinophils # (Auto) 0.2 TH/MM3 Basophils # (Auto) 0.1 TH/MM3 CBC Comment DIFF FINAL Differential Comment Urine Color LIGHT-YELLOW Urine Turbidity CLEAR Urine pH 5.5 Urine Specific [place] 1.011 Urine Protein NEG mg/dL Urine Glucose (UA) NEG mg/dL Urine Ketones NEG mg/dL Urine Occult Blood NEG Urine Nitrite NEG Urine Bilirubin NEG Urine Urobilinogen LESS THAN 2.0 MG/DL Urine Leukocyte Esterase NEG Urine RBC LESS THAN 1 /hpf Urine Squamous Epithelial Cells <1 /hpf Urine Mucus FEW /lpf Microscopic Urinalysis Comment CULT NOT INDICATED Blood Urea Nitrogen 12 MG/DL Creatinine 0.75 MG/DL Random Glucose 125 MG/DL Calcium Level 8.9 MG/DL Sodium Level 139 MEQ/L Potassium Level 4.1 MEQ/L Chloride Level 107 MEQ/L Carbon Dioxide Level 27.9 MEQ/L Anion Gap 4 MEQ/L Estimat Glomerular Filtration Rate 84 ML/MIN MDM Medical Decision Making Medical Screen Exam Complete: Yes Emergency Medical Condition: Yes Medical Record Reviewed: Yes Differential Diagnosis Renal colic versus renal calculi versus UTI Narrative Course 46-year-old female presents emergency department for evaluation left flank pain. Patient appears nontoxic. Workup is initiated in triage. Prior to bed placement, patient chooses to leave AGAINST MEDICAL ADVICE. AMA: The risks of leaving against medical advice without further evaluation treatment were discussed with the patient. These risks include cardiac dysfunction, cardiac dysrhythmia, possible heart attack, possible stroke or . The patient indicated understanding of these risks and appeared to have the capacity to make this decision. Diagnosis Primary Impression: Flank pain, acute Disposition: 07 AGAINST MEDICAL ADVICE Condition: Stable Valentine Chang Apr 12, 2017 19:42
== END 2017-04-12 19:59 | disposition left against medical advice (07) ==
LOC: NED 17:50
DX: R10.9 Unspecified abdominal pain (principal); J44.9 Chronic obstructive pulmonary disease, unspecified; K21.9 Gastro-esophageal reflux disease without esophagitis; Z72.0 Tobacco use; Z53.21 Procedure and treatment not carried out due to patient leaving prior to being seen by health care provider
CPT/HCPCS: 80048; 81001; 85025; 99283